=== PATIENT | male | born 1995 | race Caucasian/White ===

== ENCOUNTER → 2018-07-25 | Outpatient (CLI) | payer OTHER ==
--- NOTE | 2018-07-25 19:39 | REP ---
PA and lateral chest: There are no comparisons. The lung ibanez are clear. The cardiac size is normal. The leticia, mediastinum, and skeletal structures are unremarkable. Impression: Negative PA and lateral chest. Electronically Signed by Sonu Munguia MD 07/25/2018 07:31 P
== END ==
LOC: M LRY 19:17
PROVIDERS: ATTEND Physician Assistant
DX: R07.89 Other chest pain (principal)
CPT/HCPCS: 71046; 93005; G0463